=== PATIENT | male | born 1985 | race African-American/Black ===

== ENCOUNTER 2019-07-08 09:41 | Emergency (ER) | payer OTHER ==
[~2019-07-08] VITALS: Ht 177.8 cm; Wt 104.3 kg
[2019-07-08 10:06] VITALS: BP 116/77
[2019-07-08 10:11] LABS: HEMATOCRIT 46.1 % (42.0-52.0); HEMOGLOBIN 15.4 gm/dL (14.0-18.0); MCH 31.1 pg (26.0-34.0); MCHC 33.4 g/dL (28.0-37.0); MCV 93.3 fL (80.0-100.0); RBC 4.93 mil/uL (4.50-6.00); RDW 15.9 % (10.5-14.5); WBC 7.2 thou/uL (4.0-11.0)
[2019-07-08 10:18] LABS: CALCIUM 8.8 mg/dL (8.5-10.1); CREATININE 1.9 mg/dL (0.7-1.3); POTASSIUM 3.2 mmol/L (3.5-5.1)
[2019-07-08 10:23] LABS: ALBUMIN 3.9 g/dL (3.4-5.0); PROTIME 10.2 Seconds (9.3-11.4); TOTAL BILIRUBIN 0.7 mg/dL (<0.1-1.0); TOTAL PROTEIN 7.2 g/dL (6.4-8.2)
== END 2019-07-08 10:42 | disposition short-term general hospital (02) ==
LOC: ER 09:41
PROVIDERS: Emergency Medicine Emergency Medical Services
DX: S31.104A Unspecified open wound of abdominal wall, left lower quadrant without penetration into peritoneal cavity, initial encounter (principal); S81.802A Unspecified open wound, left lower leg, initial encounter; S81.801A Unspecified open wound, right lower leg, initial encounter; S00.03XA Contusion of scalp, initial encounter; J45.909 Unspecified asthma, uncomplicated; X95.8XXA Assault by other firearm discharge, initial encounter; Y93.89 Activity, other specified; Y92.89 Other specified places as the place of occurrence of the external cause; Y99.8 Other external cause status

== ENCOUNTER → 2020-06-07 | Outpatient (CLI) | payer OTHER ==
[~2020-06-07] MED LIST: FERROUS SULFAT325 MG PO; IRON325 PO; PROTONIX40 M4 PO
== END ==
LOC: LAB 07:46
PROVIDERS: ATTEND Internal Medicine Gastroenterology
DX: Z01.818 Encounter for other preprocedural examination (principal); Z20.822 Contact with and (suspected) exposure to COVID-19

== ENCOUNTER → 2020-06-10 | Outpatient (CLI) | payer OTHER | END | disposition home or self-care (01) | LOC: GI 08:26 | PROVIDERS: ATTEND Internal Medicine Gastroenterology | DX: D64.9 Anemia, unspecified (principal) ==

== ENCOUNTER → 2020-06-13 | Outpatient (CLI) | payer OTHER | END | disposition home or self-care (01) | LOC: GI 06-10 08:26 | PROVIDERS: ATTEND Internal Medicine Gastroenterology | DX: D64.9 Anemia, unspecified (principal) ==

== ENCOUNTER 2020-09-16 12:00 | Inpatient (IN) | payer OTHER ==
[2020-09-16] VITALS (8 sets, daily range): BP systolic 114–145; BP diastolic 45–78
[~2020-09-16] VITALS: Ht 177.8 cm; Wt 103.4 kg
[2020-09-16 12:55] LABS: ABSOLUTE NEUTROPHILS 2.5 thou/uL (1.4-8.2); BASOPHILS 1.2 % (0.0-2.0); CALCIUM 8.5 mg/dL (8.5-10.1); CREATININE 1.3 mg/dL (0.7-1.3); LYMPHOCYTES 22.6 % (24.0-44.0); MCHC 28.7 g/dL (28.0-37.0); MCV 62.7 fL (80.0-100.0); MONOCYTES 10.5 % (1.0-8.0); POLYS 63.7 % (36.0-66.0); POTASSIUM 4.2 mmol/L (3.5-5.1); RBC 3.29 mil/uL (4.50-6.00); RDW 25.9 % (10.5-14.5)
[2020-09-16 13:00] LABS: HEMATOCRIT 20.6 % (42.0-52.0); HEMOGLOBIN 5.9 gm/dL (14.0-18.0)
[2020-09-16 13:01] LABS: ALBUMIN 3.5 g/dL (3.4-5.0); TOTAL BILIRUBIN 0.5 mg/dL (0.2-1.0); TOTAL PROTEIN 6.7 g/dL (6.4-8.2)
[2020-09-16 13:15] LABS: ANISOCYTOSIS 2+; HYPOCHROMASIA 3+; MICROCYTES 2+; PLATELET COUNT 68 thou/uL (150-400); PLATELET ESTIMATE DECREASED
[2020-09-16 13:59] LABS: INR 0.97; PROTIME 10.6 Seconds (10.5-12.1)
--- NOTE | 2020-09-16 14:36 | EKG ---
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
[2020-09-16 16:01] LABS: % SATURATION 3 % (20-39); IRON 16 ug/dL (65-175); TIBC 467 ug/dL (250-450)
--- NOTE | 2020-09-16 18:27 | NUR ---
PATIENT TRANSFERRED TO ROOM 1600 WITHOUT COMPLICATION. NO S/S OF BLEEDING. FIRST UNIT OF PRBC INITIATED AT 1630, PATIENT TOLERATING TRANSFUSION. TOLERATING REG DIET, WILL MAKE HIM NPO AT MIDNIGHT. PATIENT DENIES DIZZINESS, ERWIN, STABLE AMBULATING WITHOUT ASSISTANCE.
[2020-09-16 21:11] LABS: HEMATOCRIT 21.7 % (42.0-52.0)
[2020-09-16 21:17] LABS: HEMOGLOBIN 6.4 gm/dL (14.0-18.0)
--- NOTE | 2020-09-17 03:10 | NUR ---
no signs or symtoms of bleeding tonight. second unit of prbc's infused and pt is resting at this time. strong steady gait. denies pain. he is concerned about his hemoglobin and is wanting to explore what could be causing his continued problem.
[2020-09-17 03:19] VITALS: BP 110/59
[2020-09-17 05:51] LABS: CALCIUM 7.8 mg/dL (8.5-10.1); CREATININE 1.2 mg/dL (0.7-1.3); POTASSIUM 3.9 mmol/L (3.5-5.1)
[2020-09-17 05:57] LABS: ABSOLUTE NEUTROPHILS 2.2 thou/uL (1.4-8.2); BASOPHILS 1.8 % (0.0-2.0); EOSINOPHILS 4.5 % (0.0-3.0); HEMATOCRIT 24.1 % (42.0-52.0); HEMOGLOBIN 7.2 gm/dL (14.0-18.0); LYMPHOCYTES 33.9 % (24.0-44.0); MCHC 29.7 g/dL (28.0-37.0); MCV 67.4 fL (80.0-100.0); MONOCYTES 11.5 % (1.0-8.0); PLATELET COUNT 58 thou/uL (150-400); POLYS 48.3 % (36.0-66.0); RBC 3.58 mil/uL (4.50-6.00); RDW 28.7 % (10.5-14.5); WBC 4.5 thou/uL (4.0-11.0)
[2020-09-17 08:48] VITALS: BP 117/88
--- NOTE | 2020-09-17 15:01 | NUR ---
INITIAL ASSESSMENT: SW reviewed chart and spoke with nursing and attending physician. Pt was admitted from home due to anemia. Pt's hemoglobin was 5.9 upon admission. 2 units of PRBC given. Pt off the unit having EGD earlier today. Pt with recent hospital stay at [facility]. Per chart, pt is alert/orientated x 4. Pt lives at home. Pt does not currently have health insurance. [employer] to screen pt and assist as needed. SW to follow up with pt at a later time to assess and assist as needed with discharge planning.
[2020-09-17 15:34] VITALS: BP 110/60
--- NOTE | 2020-09-17 18:08 | NUR ---
ASSUMED PATIENT CARE AT 0700. A/O X4. HAD EGD AT NOON TOLERATED WELL. UP AD ELAINE PROGRESSING TOWARDS POC GOALS.
[2020-09-17 21:06] VITALS: BP 115/46
[2020-09-18 01:40] VITALS: BP 115/46
[2020-09-18 04:40] VITALS: BP 103/54
[2020-09-18 07:39] VITALS: BP 110/61
[2020-09-18 11:04] VITALS: BP 110/61
--- NOTE | 2020-09-18 11:08 | NUR ---
DISCHARGE NOTE: SW reviewed chart and spoke with nursing and attending physician. Pt is medically stable for discharge home today. SW met with pt at bedside. Introduced role of SW. Pt is alert/orientated x 4. Pt reports he lives at home and is normally independent with ADLs. No use of DME. Pt's PCP is Dr. Chris Rosado. Pt states he will have transportation home when discharged. Pt confirmed that he does not have health insurance. Pt has been screened for Medicaid by [employer] and does not qualify. No SW needs identified at this time. SW is available to assist should needs arise.
--- NOTE | 2020-09-19 18:06 | PATH ---
[facility] [address] [place] [address] PATHOLOGY RPT PROCEDURE Name: GUS BARCENAS Room #: 356-P [facility] IN M.R.#: [id number] Admission: 09/16/20 Date of : 83 Discharge: 09/18/20 Report #: [id number] Path Case #: [id number] [facility] Accession Number: [id number] . 01 Material submitted: . PART A: duodenum - DUODENUM CELIAC PART B: ANTRUM - ANTRUM H PYLORI . 01 Clinical history: . ESOPHAGITIS, HIATAL HERNIA . 02 Diagnosis: A. Small bowel mucosa, duodenum celiac, endoscopic biopsy: - No diagnostic abnormalities present. - Negative for villous blunting or increase in intraepithelial lymphocytes. . B. Gastric mucosa, antrum H. pylori, endoscopic biopsy: - Mild reactive gastropathy. - Negative for intestinal metaplasia or atrophy. - Negative for Helicobacter pylori (properly controlled immunohistochemical stain performed). (IUV/db; 09/19/2020) LBQ 09/19/2020 1325 Local . 02 Electronically signed: . Fauzia Naranjo MD, Pathologist NPI- [id number] . 01 Gross description: . A. Received in formalin labeled "Gus Barcenas, duodenum celiac" are 2 fragments of mai-brown soft tissue measuring 0.3 x 0.3 x 0.3 cm and 0.6 x 0.5 x 0.3 cm. The specimen is submitted entirely in A1. . B. Received in formalin labeled "Gus Barcenas antrum H. pylori" are 2 fragments of mai-brown soft tissue measuring 0.6 x 0.3 x 0.3 cm and 0.5 x 0.4 x 0.3 cm. The specimen is submitted entirely in B1. ([facility]; 09/18/2020) GZA/GZA 09/18/2020 1650 Local . 02 Pathologist provided ICD-10: K31.9, K20.90, K44.9 . 02 CPT . 307647, 373122, I01344 Specimen Comment: A courtesy copy of this report has been sent to [phone], [phone] Specimen Comment: 2009, [place] [address] PATHOLOGY RPT PROCEDURE Name: GUS BARCENAS Room #: 356-P DIS IN M.R.#: [id number] Admission: 09/16/20 Date of : 83 Discharge: 09/18/20 Report #: [id number] Path Case #: [id number] Specimen Comment: Report sent to , DR NEAL / DR OLMOS Performed at: [address], [place] [id number] MD Leif Diop MD Phone: [phone] Performed at: [address] [id number] MD Fauzia Naranjo MD Phone: [phone]
== END 2020-09-18 11:16 | disposition home or self-care (01) | DRG 381 ==
LOC: ER 12:00 → 3W 14:03 → EROBS 14:03 → 3W 14:36
PROVIDERS: Emergency Medicine; Nurse Practitioner; ADMIT Hospitalist; ATTEND Hospitalist
PROC: 30233N1 Transfusion of Nonautologous Red Blood Cells into Peripheral Vein, Percutaneous Approach (ICD-10-PCS; principal; 2020-09-16)
PROC: 0DB78ZX Excision of Stomach, Pylorus, Via Natural or Artificial Opening Endoscopic, Diagnostic (ICD-10-PCS; 2020-09-16)
PROC: 0DB98ZX Excision of Duodenum, Via Natural or Artificial Opening Endoscopic, Diagnostic (ICD-10-PCS; 2020-09-16)
DX: K22.11 Ulcer of esophagus with bleeding (principal); D61.818 Other pancytopenia; J45.909 Unspecified asthma, uncomplicated; D64.9 Anemia, unspecified; K44.9 Diaphragmatic hernia without obstruction or gangrene; Z79.899 Other long term (current) drug therapy
CPT/HCPCS: 10879; 62110; 62900; 70005

== ENCOUNTER 2021-02-28 22:21 | Emergency (ER) | payer OTHER ==
[~2021-02-28] VITALS: Ht 177.8 cm; Wt 97.5 kg
[2021-02-28 22:58] LABS: URINE BILIRUBIN NEGATIVE (Negative); URINE BLOOD NEGATIVE (Negative); URINE CLARITY CLEAR; URINE COLOR YELLOW; URINE GLUCOSE-RANDOM* NEGATIVE (Negative); URINE KETONES NEGATIVE (Negative); URINE LEUKOCYTES-REFLEX NEGATIVE (Negative); URINE NITRITE-REFLEX NEGATIVE (Negative); URINE PROTEIN (DIPSTICK) NEGATIVE (Negative); URINE SPECIFIC GRAVITY 1.015 (1.005-1.035); URINE UROBILINOGEN 0.2 E.U./dl (0.2-1.0)
[2021-02-28 23:04] LABS: MCH 17.3 pg (26.0-34.0); MCHC 28.5 g/dL (28.0-37.0)
[2021-02-28 23:06] LABS: ABSOLUTE NEUTROPHILS 5.2 thou/uL (1.4-8.2); EOSINOPHILS 3.3 % (0.0-3.0); HEMOGLOBIN 9.1 gm/dL (14.0-18.0); LYMPHOCYTES 15.1 % (24.0-44.0); MCV 60.7 fL (80.0-100.0); MONOCYTES 8.7 % (1.0-8.0); PLATELET COUNT 197 thou/uL (150-400); POLYS 71.9 % (36.0-66.0); RBC 5.28 mil/uL (4.50-6.00); RDW 23.5 % (10.5-14.5); WBC 7.3 thou/uL (4.0-11.0)
[2021-02-28 23:18] LABS: CALCIUM 8.5 mg/dL (8.5-10.1); CREATININE 1.2 mg/dL (0.7-1.3); POTASSIUM 3.7 mmol/L (3.5-5.1)
[2021-02-28 23:28] LABS: ALBUMIN 3.5 g/dL (3.4-5.0); TOTAL BILIRUBIN 0.6 mg/dL (0.2-1.0); TOTAL PROTEIN 7.1 g/dL (6.4-8.2)
[2021-03-01 00:35] LABS: HYPOCHROMASIA 3+; MICROCYTES 3+
[2021-03-01 00:36] LABS: ANISOCYTOSIS 3+; OVALOCYTES OCCASIONAL; POLYCHROMASIA 1+
[2021-03-01] MEDS ORDERED: NORCO5 PO (02:33)
[2021-03-01] MEDS ORDERED: AZITHROMYCIN 2250 MG PO (02:33)
[2021-03-01 03:13] VITALS: BP 134/92
--- NOTE | 2021-03-01 12:46 | EKG ---
[address] [employer] [place] [address] ELECTROCARDIOGRAM REPORT Name: MONIQUE YUAN [id number] Admission: 02/28/21 Attend Phys: Discharge: Date of : 83 Report #: [id number] [facility] ED Test Date: 2021-02-28 Test Time: 22:47:02 Pat Name: MONIQUE YUAN Department: Room: Gender: Palliative Care Specialist: : 1985 Requested By: Deborah Hayes Order Number: [id number] MD: Ramirez Shelby Measurements Intervals [place] Rate: 78 P: 39 CT: 204 QRS: 46 QRSD: 99 T: 33 QT: 373 QTc: 425 Interpretive Statements Sinus rhythm Borderline prolonged CT interval Compared to ECG 09/16/2020 12:22:16 No significant changes Electronically Signed On 03-01-2021 12:46:10 COPRA SAMPLER by Ramirez Shelby [email or web address] <ELECTRONICALLY SIGNED> By: Ramirez Shelby MD 03/01/21 1246 2247 2247 Ramirez Shelby MD /EPI
== END 2021-03-01 03:13 | disposition home or self-care (01) ==
LOC: ER 22:21
PROVIDERS: Emergency Medicine
DX: J18.9 Pneumonia, unspecified organism (principal); Z20.822 Contact with and (suspected) exposure to COVID-19; J90 Pleural effusion, not elsewhere classified; R10.12 Left upper quadrant pain; J45.909 Unspecified asthma, uncomplicated